=== PATIENT | male | born 2000 | race Caucasian/White ===

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

== ENCOUNTER → 2022-01-11 | Outpatient (REF) | payer MEDICAID ==
[2022-01-11 18:15] LABS: BASO % 0.2 % (0.0-1.0); EOS # 0.2 10^3/uL (0.0-0.5); EOS % 3.3 % (0.0-3.0); HEMOGLOBIN 13.6 g/dl (13.5-17.5); LYMPH # 2.3 10^3/uL (1.5-5.0); LYMPH % 39.4 % (24.0-44.0); MEAN CORPUSCULAR HEMOGLOBIN 29.5 pg (27.0-33.0); MEAN CORPUSCULAR HGB CONC 33.2 g/dl (32.0-36.5); MEAN CORPUSCULAR VOLUME 88.9 fl (80.0-96.0); MONO # 0.8 10^3/uL (0.0-0.8); MONO % 13.1 % (2.0-8.0); NEUTROPHILS # 2.5 10^3/uL (1.5-8.5); NEUTROPHILS % 43.7 % (36.0-66.0); PLATELET COUNT, AUTOMATED 270 10^3/uL (150-450); RED BLOOD COUNT 4.61 10^6/uL (4.30-6.10); WHITE BLOOD COUNT 5.8 10^3/uL (4.0-10.0)
== END ==
LOC: M LAB REF 17:59
PROVIDERS: ATTEND Pediatrics
DX: D72.819 Decreased white blood cell count, unspecified (principal)

== ENCOUNTER 2022-03-14 22:29 | Emergency (ER) | payer MEDICAID ==
[~2022-03-14] VITALS: Ht 204.5 cm; Wt 73.9 kg
[2022-03-14] MEDS ORDERED: COLC0.6T47 PO (22:43)
[2022-03-15 03:08] VITALS: BP 120/75
== END 2022-03-15 03:32 | disposition left against medical advice (07) ==
LOC: M ED 22:29
DX: Z53.21 Procedure and treatment not carried out due to patient leaving prior to being seen by health care provider (principal)

== ENCOUNTER 2022-03-15 20:29 | Emergency (ER) | payer MEDICAID ==
[~2022-03-15] VITALS: Ht 204.5 cm; Wt 73.5 kg
[~2022-03-15 20:29] MED LIST changes: +COLC0.6T47 PO
[2022-03-16 03:00] LABS: BASO % 0.1 % (0.0-1.0); EOS # 0.2 10^3/uL (0.0-0.5); EOS % 3.2 % (0.0-3.0); HEMATOCRIT 39.4 % (42.0-52.0); HEMOGLOBIN 13.2 g/dl (13.5-17.5); LYMPH # 3.1 10^3/uL (1.5-5.0); LYMPH % 46.1 % (24.0-44.0); MEAN CORPUSCULAR HEMOGLOBIN 29.5 pg (27.0-33.0); MEAN CORPUSCULAR HGB CONC 33.5 g/dl (32.0-36.5); MEAN CORPUSCULAR VOLUME 88.1 fl (80.0-96.0); MONO # 0.7 10^3/uL (0.0-0.8); MONO % 10.2 % (2.0-8.0); NEUTROPHILS # 2.7 10^3/uL (1.5-8.5); NEUTROPHILS % 40.3 % (36.0-66.0); PLATELET COUNT, AUTOMATED 235 10^3/uL (150-450); RED BLOOD COUNT 4.47 10^6/uL (4.30-6.10); WHITE BLOOD COUNT 6.8 10^3/uL (4.0-10.0)
[2022-03-16] MEDS ORDERED: NS 1,000 ML IV ONE (03:05)
[2022-03-16 03:34] LABS: BLOOD UREA NITROGEN 13 MG/DL (7-18); CARBON DIOXIDE LEVEL 28 MEQ/L (21-32); CHLORIDE LEVEL 107 MEQ/L (98-107); CREATININE FOR GFR 0.92 MG/DL (0.70-1.30); GLUCOSE, FASTING 106 MG/DL (70-100); POTASSIUM SERUM 4.1 MEQ/L (3.5-5.1); SODIUM LEVEL 140 MEQ/L (136-145)
[2022-03-16 05:55] VITALS: BP 126/82
== END 2022-03-16 06:00 | disposition home or self-care (01) ==
LOC: EDBD 20:29 → M ED 20:29
DX: I95.1 Orthostatic hypotension (principal); R51.9 Headache, unspecified; F84.0 Autistic disorder; M41.9 Scoliosis, unspecified; Z91.030 Bee allergy status; J30.2 Other seasonal allergic rhinitis

== ENCOUNTER → 2022-06-08 | Outpatient (REF) | payer MEDICAID ==
[2022-06-08 13:39] LABS: BASO % 0.2 % (0.0-1.0); EOS # 0.2 10^3/uL (0.0-0.5); EOS % 4.1 % (0.0-3.0); HEMATOCRIT 41.8 % (42.0-52.0); HEMOGLOBIN 13.7 g/dl (13.5-17.5); LYMPH # 1.8 10^3/uL (1.5-5.0); LYMPH % 41.3 % (24.0-44.0); MEAN CORPUSCULAR HEMOGLOBIN 29.1 pg (27.0-33.0); MEAN CORPUSCULAR HGB CONC 32.8 g/dl (32.0-36.5); MEAN CORPUSCULAR VOLUME 88.9 fl (80.0-96.0); MONO # 0.5 10^3/uL (0.0-0.8); MONO % 11.6 % (2.0-8.0); NEUTROPHILS # 1.9 10^3/uL (1.5-8.5); NEUTROPHILS % 42.8 % (36.0-66.0); PLATELET COUNT, AUTOMATED 260 10^3/uL (150-450); WHITE BLOOD COUNT 4.4 10^3/uL (4.0-10.0)
[2022-06-08 14:05] LABS: LIPASE 46 U/L (12-53)
[2022-06-08 14:07] LABS: ALBUMIN 4.5 G/DL (3.2-5.2); ALKALINE PHOSPHATASE 107 U/L (46-116); ALT/SGPT 10 U/L (7.0-40); AMYLASE 157 U/L (30-118); AST/SGOT 18 U/L (<34); BILIRUBIN,TOTAL 1.2 MG/DL (0.3-1.2); BLOOD UREA NITROGEN 16 MG/DL (9-23); CALCIUM LEVEL 9.4 MG/DL (8.5-10.1); CARBON DIOXIDE LEVEL 28 MMOL/L (20-31); CHLORIDE LEVEL 105 MMOL/L (98-107); GLUCOSE, FASTING 90 MG/DL (60-100); POTASSIUM SERUM 4.7 MMOL/L (3.5-5.1); SODIUM LEVEL 142 MMOL/L (136-145); TOTAL PROTEIN 7.7 G/DL (5.7-8.2)
== END ==
LOC: M LAB REF 12:30
PROVIDERS: ATTEND Nurse Practitioner Family
DX: R10.9 Unspecified abdominal pain (principal)

== ENCOUNTER → 2022-06-27 | Outpatient (CLI) | payer MEDICAID | LOC: M RAD 07:21 | PROVIDERS: ATTEND Nurse Practitioner Family | DX: R10.9 Unspecified abdominal pain (principal) ==

== ENCOUNTER 2022-11-05 19:14 | Observation (INO) | payer MEDICAID ==
[~2022-11-05] VITALS: Ht 204.5 cm; Wt 71.5 kg
[2022-11-05] MEDS ORDERED: NS 1,000 ML IV ONE (19:35)
[2022-11-05] MEDS ORDERED: CHARCOAL ACTIVATED LIQUID 25GM/120ML BTL PO ONE (19:50)
[2022-11-05 19:55] LABS: HEMATOCRIT 39.1 % (42.0-52.0); HEMOGLOBIN 13.2 g/dl (13.5-17.5); MEAN CORPUSCULAR HEMOGLOBIN 29.2 pg (27.0-33.0); MEAN CORPUSCULAR HGB CONC 33.8 g/dl (32.0-36.5); MEAN CORPUSCULAR VOLUME 86.5 fl (80.0-96.0); PLATELET COUNT, AUTOMATED 235 10^3/uL (150-450); RED BLOOD COUNT 4.52 10^6/uL (4.30-6.10); WHITE BLOOD COUNT 7.5 10^3/uL (4.0-10.0)
[2022-11-05 20:21] LABS: ETHYL ALCOHOL (ETHANOL) < 0.003 % (0.000-0.010)
[2022-11-05 20:23] LABS: ACETAMINOPHEN LEVEL < 2.0 UG/ML (10.0-20.0); ALBUMIN 4.6 G/DL (3.2-5.2); ALKALINE PHOSPHATASE 101 U/L (46-116); ALT/SGPT < 9 U/L (7.0-40); AST/SGOT 11 U/L (<34); BILIRUBIN,DIRECT 0.6 MG/DL (<0.4); BILIRUBIN,TOTAL 1.7 MG/DL (0.3-1.2); BLOOD UREA NITROGEN 14 MG/DL (9-23); CALCIUM LEVEL 9.3 MG/DL (8.5-10.1); CARBON DIOXIDE LEVEL 24 MMOL/L (20-31); CHLORIDE LEVEL 107 MMOL/L (98-107); GLUCOSE, FASTING 105 MG/DL (60-100); POTASSIUM SERUM 3.6 MMOL/L (3.5-5.1); SALICYLATE LEVEL < 3.0 MG/DL (<30); SODIUM LEVEL 138 MMOL/L (136-145); TOTAL PROTEIN 7.5 G/DL (5.7-8.2)
[2022-11-05 20:25] LABS: THYROID STIMULATING HORMONE 0.616 uIU/ML (0.48-4.17)
[2022-11-05] MEDS ORDERED: ACETAMINOPHEN TAB 650MG DOSE (2X325MG) PO PRN (22:30)
[2022-11-05] MEDS ORDERED: CITA10TA6 PO (22:56)
[2022-11-05] MEDS ORDERED: HOME MED LIST COMPLETE! XX SCH (23:00)
[2022-11-06 00:04] VITALS: BP 143/76; TEMP 98.1; O2SAT 97
[2022-11-06 00:57] LABS: AMPHETAMINES LEVEL URINE NEGATIVE (NEGATIVE); BARBITURATES URINE NEGATIVE (NEGATIVE); BENZODIAZEPINES URINE NEGATIVE (NEGATIVE); CANNABINOIDS URINE NEGATIVE (NEGATIVE); COCAINE METABOLITE URINE NEGATIVE (NEGATIVE); METHADONE URINE NEGATIVE (NEGATIVE); OPIATES URINE NEGATIVE (NEGATIVE); PHENCYCLIDINE URINE NEGATIVE (NEGATIVE)
[2022-11-06 05:03] VITALS: BP 110/59; TEMP 98.8; O2SAT 98
[2022-11-06 06:04] LABS: HEMATOCRIT 37.1 % (42.0-52.0); HEMOGLOBIN 12.4 g/dl (13.5-17.5); MEAN CORPUSCULAR HEMOGLOBIN 29.5 pg (27.0-33.0); MEAN CORPUSCULAR HGB CONC 33.4 g/dl (32.0-36.5); MEAN CORPUSCULAR VOLUME 88.3 fl (80.0-96.0); PLATELET COUNT, AUTOMATED 221 10^3/uL (150-450); WHITE BLOOD COUNT 5.3 10^3/uL (4.0-10.0)
[2022-11-06 06:24] LABS: BLOOD UREA NITROGEN 12 MG/DL (9-23); CALCIUM LEVEL 8.8 MG/DL (8.5-10.1); CARBON DIOXIDE LEVEL 26 MMOL/L (20-31); CHLORIDE LEVEL 106 MMOL/L (98-107); CREATININE FOR GFR 0.78 MG/DL (0.70-1.30); GLUCOSE, FASTING 126 MG/DL (60-100); POTASSIUM SERUM 4.3 MMOL/L (3.5-5.1); SODIUM LEVEL 139 MMOL/L (136-145)
[2022-11-06 07:00] VITALS: BP 118/65
[2022-11-06 08:40] LABS: CK-MB VALUE MASS < 1.0 NG/ML (<3.6)
[2022-11-06 08:41] LABS: CPK CREATINE PHOSPHOKINASE 116 U/L (46-171); MB/CK RELATIVE INDEX 0.86 (< OR =4)
[2022-11-06 09:31] LABS: CK-MB VALUE MASS < 1.0 NG/ML (<3.6)
[2022-11-06 09:33] LABS: CPK CREATINE PHOSPHOKINASE 119 U/L (46-171); MB/CK RELATIVE INDEX 0.84 (< OR =4)
[2022-11-06 14:00] VITALS: BP 108/70; TEMP 99.7; O2SAT 98
[2022-11-06 20:33] VITALS: BP 107/59; TEMP 98.8; O2SAT 99
== END 2022-11-06 22:21 ==
LOC: M ED 19:14 → M ED INP 19:15 → M MSPAV 11-06 00:11
PROVIDERS: ADMIT Internal Medicine; ATTEND Internal Medicine
DX: T43.222A Poisoning by selective serotonin reuptake inhibitors, intentional self-harm, initial encounter (principal); T38.0X2A Poisoning by glucocorticoids and synthetic analogues, intentional self-harm, initial encounter; F32.89 Other specified depressive episodes; R07.9 Chest pain, unspecified; F84.0 Autistic disorder; Q87.3 Congenital malformation syndromes involving early overgrowth; J30.2 Other seasonal allergic rhinitis; Z79.899 Other long term (current) drug therapy; Z91.030 Bee allergy status

== ENCOUNTER 2022-11-06 20:41 | Inpatient (IN) | payer MEDICAID ==
[~2022-11-06] VITALS: Ht 203.2 cm; Wt 69.0 kg
[~2022-11-06 20:41] MED LIST changes: +CITA10TA6 PO
[2022-11-06] MEDS ORDERED: ACETAMINOPHEN TAB 650MG DOSE (2X325MG) PO PRN (21:00)
[2022-11-06] MEDS ORDERED: MOM 30ML SUSPENSION UDC PO PRN (21:00)
[2022-11-06] MEDS ORDERED: traZODone 50 MG TAB PO PRN (21:00)
[2022-11-06] MEDS ORDERED: MAALOX 30 ML SUSP *UDC PO PRN (21:00)
[2022-11-06 22:25] VITALS: BP 105/60; TEMP 97.7; O2SAT 16
[2022-11-07 06:06] VITALS: BP 107/59; TEMP 97.9; O2SAT 98
[2022-11-07] MEDS: ARIPiprazole 2 MG TAB PO SCH (11:55)
[2022-11-07 18:27] VITALS: BP 119/60; TEMP 96.9
[2022-11-08 06:40] LABS: CHOLESTEROL RISK RATIO 2.96 (<5); HDL CHOLESTEROL 49.9 MG/DL (>40); LDL CHOLESTEROL 82.9 MG/DL (<100); NON-HDL-C 98.1 MG/DL
[2022-11-08 06:45] VITALS: BP 119/58; TEMP 96.8; O2SAT 96
[2022-11-08] MEDS: CitaloPRAM (CeleXA) 10 MG TABLET PO SCH (09:23)
[2022-11-08] MEDS: ARIPiprazole 2 MG TAB PO SCH (09:23)
[2022-11-08] MEDS ORDERED: BENZTROPINE 0.5 MG TAB PO PRN (11:10)
[2022-11-08] MEDS ORDERED: PILL CUTTER 1 EACH XX PRN (11:20)
[2022-11-08 18:55] VITALS: BP 117/71; TEMP 97.2
[2022-11-09 06:28] VITALS: BP 108/55; TEMP 97.8; O2SAT 99
[2022-11-09] MEDS ORDERED: LIDOCAINE 5% (LIDODERM) PATCH TD SCH (09:00)
[2022-11-09] MEDS: CitaloPRAM (CeleXA) 10 MG TABLET PO SCH (09:26)
[2022-11-09] MEDS: ARIPiprazole 2 MG TAB PO SCH (09:26)
[2022-11-09] MEDS ORDERED: CELE10TA PO (11:35)
[2022-11-09] MEDS ORDERED: ABIL1TAB13 PO (11:35)
[2022-11-09] MEDS ORDERED: LIDO5DIS41 TOP (13:10)
== END 2022-11-09 12:48 | disposition home or self-care (01) | DRG 758 ==
LOC: M ED INP 20:58 → M PSY 22:25
PROVIDERS: ADMIT Student in an Organized Health Care Education/Training Program; ATTEND Student in an Organized Health Care Education/Training Program
DX: F63.9 Impulse disorder, unspecified (principal); F43.20 Adjustment disorder, unspecified; M41.9 Scoliosis, unspecified; Q87.3 Congenital malformation syndromes involving early overgrowth; F84.0 Autistic disorder; Z91.51 Personal history of suicidal behavior; F41.9 Anxiety disorder, unspecified; F32.A Depression, unspecified; Z91.030 Bee allergy status

== ENCOUNTER → 2022-12-14 | Outpatient (REF) | payer MEDICAID ==
[~2022-12-14] MED LIST changes: +ABIL1TAB13 PO; +CELE10TA PO; +LIDO5DIS41 TOP
== END ==
LOC: M LAB REF 16:49
PROVIDERS: ATTEND Nurse Practitioner Family
DX: R19.5 Other fecal abnormalities (principal)

== ENCOUNTER → 2022-12-18 | Outpatient (REF) | payer MEDICAID | LOC: M LAB REF 11:24 | PROVIDERS: ATTEND Nurse Practitioner Family | DX: Z11.9 Encounter for screening for infectious and parasitic diseases, unspecified (principal) ==

== ENCOUNTER 2022-12-24 12:33 | Inpatient (IN) | payer MEDICAID ==
[~2022-12-24] VITALS: Ht 203.2 cm; Wt 73.2 kg
[2022-12-24] MEDS ORDERED: HYDR-643 PO ×3 (13:01→21:55)
[2022-12-24 13:48] LABS: HEMATOCRIT 41.1 % (42.0-52.0); HEMOGLOBIN 13.7 g/dl (13.5-17.5); MEAN CORPUSCULAR HEMOGLOBIN 29.3 pg (27.0-33.0); MEAN CORPUSCULAR HGB CONC 33.3 g/dl (32.0-36.5); PLATELET COUNT, AUTOMATED 246 10^3/uL (150-450); RED BLOOD COUNT 4.67 10^6/uL (4.30-6.10); WHITE BLOOD COUNT 7.1 10^3/uL (4.0-10.0)
[2022-12-24 14:06] LABS: ETHYL ALCOHOL (ETHANOL) < 0.003 % (0.000-0.010)
[2022-12-24 14:07] LABS: ACETAMINOPHEN LEVEL < 2.0 UG/ML (10.0-20.0); ALBUMIN 4.3 G/DL (3.2-5.2); ALKALINE PHOSPHATASE 98 U/L (46-116); ALT/SGPT < 9 U/L (7.0-40); AST/SGOT < 8 U/L (<34); BILIRUBIN,DIRECT 0.4 MG/DL (<0.4); BILIRUBIN,TOTAL 1.1 MG/DL (0.3-1.2); BLOOD UREA NITROGEN 13 MG/DL (9-23); CALCIUM LEVEL 9.6 MG/DL (8.5-10.1); CARBON DIOXIDE LEVEL 26 MMOL/L (20-31); CHLORIDE LEVEL 105 MMOL/L (98-107); CREATININE FOR GFR 0.82 MG/DL (0.70-1.30); GLUCOSE, FASTING 95 MG/DL (60-100); POTASSIUM SERUM 3.8 MMOL/L (3.5-5.1); SODIUM LEVEL 140 MMOL/L (136-145); TOTAL PROTEIN 7.7 G/DL (5.7-8.2)
[2022-12-24 14:08] LABS: SALICYLATE LEVEL < 3.0 MG/DL (<30)
[2022-12-24 14:10] LABS: THYROID STIMULATING HORMONE 0.769 uIU/ML (0.48-4.17)
[2022-12-24 18:10] LABS: AMPHETAMINES LEVEL URINE NEGATIVE (NEGATIVE); BARBITURATES URINE NEGATIVE (NEGATIVE); PHENCYCLIDINE URINE NEGATIVE (NEGATIVE)
[2022-12-24 18:11] LABS: BENZODIAZEPINES URINE NEGATIVE (NEGATIVE); CANNABINOIDS URINE NEGATIVE (NEGATIVE); COCAINE METABOLITE URINE NEGATIVE (NEGATIVE); METHADONE URINE NEGATIVE (NEGATIVE); OPIATES URINE NEGATIVE (NEGATIVE)
[2022-12-24] MEDS ORDERED: diphenhydrAMINE 25MG CAP PO PRN (20:40)
[2022-12-24] MEDS ORDERED: MAALOX 30 ML SUSP *UDC PO PRN (20:40)
[2022-12-24] MEDS ORDERED: MOM 30ML SUSPENSION UDC PO PRN (20:40)
[2022-12-24] MEDS ORDERED: ACETAMINOPHEN TAB 650MG DOSE (2X325MG) PO PRN (20:40)
[2022-12-24] MEDS ORDERED: IBUPROFEN 400MG TAB PO PRN (20:40)
[2022-12-24] MEDS ORDERED: traZODone 50 MG TAB PO PRN (20:40)
[2022-12-24] MEDS ORDERED: ARIP1TAB4 PO (21:55)
[2022-12-24] MEDS ORDERED: CITA10TA7 PO (21:55)
[2022-12-24] MEDS ORDERED: HOME MED LIST COMPLETE! XX SCH (22:00)
[2022-12-24 22:14] VITALS: BP 122/74; TEMP 97.3; O2SAT 100
[2022-12-25 06:25] VITALS: BP 115/63; TEMP 98.1; O2SAT 100
[2022-12-25 18:59] VITALS: BP 117/71; TEMP 97.2
[2022-12-25] MEDS: ARIPiprazole 2 MG TAB PO SCH (21:52)
[2022-12-25] MEDS: CitaloPRAM (CeleXA) 10 MG TABLET PO SCH (21:53)
[2022-12-26 06:28] VITALS: BP 112/64; TEMP 98; O2SAT 98
[2022-12-26 18:27] VITALS: BP 119/65; TEMP 97
[2022-12-26] MEDS: CitaloPRAM (CeleXA) 10 MG TABLET PO SCH (21:22)
[2022-12-26] MEDS: ARIPiprazole 2 MG TAB PO SCH (21:22)
[2022-12-27 06:19] VITALS: BP 103/56; TEMP 98; O2SAT 98
[2022-12-27 18:00] VITALS: BP 127/77; TEMP 97.6
[2022-12-27] MEDS: ARIPiprazole 2 MG TAB PO SCH (21:18)
[2022-12-27] MEDS: CitaloPRAM (CeleXA) 10 MG TABLET PO SCH (21:18)
[2022-12-28 06:05] VITALS: BP 104/54; TEMP 98.1; O2SAT 97
== END 2022-12-28 12:06 | disposition home or self-care (01) | DRG 754 ==
LOC: M ED 12:33 → M ED INP 20:40 → M PSY 21:57
PROVIDERS: ADMIT Psychiatry & Neurology Psychiatry; ATTEND Psychiatry & Neurology Psychiatry
DX: F32.A Depression, unspecified (principal); M41.9 Scoliosis, unspecified; Q87.3 Congenital malformation syndromes involving early overgrowth; M54.50 Low back pain, unspecified; F63.9 Impulse disorder, unspecified; F84.0 Autistic disorder; F41.9 Anxiety disorder, unspecified; Z91.51 Personal history of suicidal behavior; Z81.1 Family history of alcohol abuse and dependence; Z62.811 Personal history of psychological abuse in childhood; Z79.899 Other long term (current) drug therapy; Z91.030 Bee allergy status; Z20.822 Contact with and (suspected) exposure to COVID-19; Z63.0 Problems in relationship with spouse or partner

== ENCOUNTER 2023-04-01 11:01 | Observation (INO) | payer MEDICAID ==
[~2023-04-01] VITALS: Ht 203.2 cm; Wt 80.2 kg
[~2023-04-01 11:01] MED LIST changes: +ARIP1TAB4 PO; +CITA10TA7 PO; +HYDR-643 PO; +RA M1.74 PO
[2023-04-01 14:58] LABS: BASO % 0.1 % (0.0-1.0); EOS # 0.2 10^3/uL (0.0-0.5); EOS % 2.2 % (0.0-3.0); HEMATOCRIT 43.6 % (42.0-52.0); HEMOGLOBIN 14.3 g/dl (13.5-17.5); LYMPH # 2.1 10^3/uL (1.5-5.0); LYMPH % 31.7 % (24.0-44.0); MEAN CORPUSCULAR HEMOGLOBIN 29.1 pg (27.0-33.0); MEAN CORPUSCULAR HGB CONC 32.8 g/dl (32.0-36.5); MEAN CORPUSCULAR VOLUME 88.6 fl (80.0-96.0); MONO # 0.6 10^3/uL (0.0-0.8); MONO % 8.8 % (2.0-8.0); NEUTROPHILS # 3.8 10^3/uL (1.5-8.5); NEUTROPHILS % 57.1 % (36.0-66.0); PLATELET COUNT, AUTOMATED 262 10^3/uL (150-450); RED BLOOD COUNT 4.92 10^6/uL (4.30-6.10); WHITE BLOOD COUNT 6.7 10^3/uL (4.0-10.0)
[2023-04-01] MEDS ORDERED: ISOVUE-370 76% 100ML VIAL As Ordered ONE (15:03)
[2023-04-01 15:25] LABS: LIPASE 39 U/L (12-53)
[2023-04-01 15:27] LABS: ALBUMIN 4.5 G/DL (3.2-5.2); ALKALINE PHOSPHATASE 106 U/L (46-116); ALT/SGPT < 9 U/L (7.0-40); AST/SGOT 17 U/L (<34); BILIRUBIN,DIRECT 0.2 MG/DL (<0.4); BILIRUBIN,TOTAL 0.8 MG/DL (0.3-1.2); TOTAL PROTEIN 8.1 G/DL (5.7-8.2)
[2023-04-01] MEDS ORDERED: FLEET ENEMA PR STA (16:20)
[2023-04-01] MEDS ORDERED: LACTULOSE 20GM/30ML SYRUP UDC PO ONE (16:20)
[2023-04-01] MEDS ORDERED: BISACODYL 10MG SUPP PR ONE (16:40)
[2023-04-01] MEDS ORDERED: MED REC IN PROGRESS XX SCH (17:40)
[2023-04-01 18:17] LABS: RSV AMPLIFICATION NEGATIVE (NEGATIVE)
[2023-04-01] MEDS ORDERED: ARIP1TAB6 PO (18:27)
[2023-04-01] MEDS ORDERED: EPIP0.3I2 INJ (18:29)
[2023-04-01] MEDS ORDERED: COLA100C5 PO (18:30)
[2023-04-01] MEDS ORDERED: RA M1SOL2 PO (18:32)
[2023-04-01] MEDS ORDERED: MIRA3350 PO (18:33)
[2023-04-01] MEDS ORDERED: HOME MED LIST COMPLETE! XX SCH (18:35)
[2023-04-01 19:46] VITALS: BP 120/68; TEMP 97.6; O2SAT 97
[2023-04-01] MEDS: LACTULOSE 20GM/30ML SYRUP UDC PO SCH (20:45)
[2023-04-01] MEDS: CitaloPRAM (CeleXA) 10 MG TABLET PO SCH (20:45)
[2023-04-01] MEDS: SENNA 8.6 MG TAB (SENOKOT) PO SCH (20:45)
[2023-04-01] MEDS: DOCUSATE SODIUM 100MG CAPSULE PO SCH (20:45)
[2023-04-02] MEDS: LACTULOSE 20GM/30ML SYRUP UDC PO SCH ×3 (00:25→09:34)
[2023-04-02 01:31] VITALS: BP 113/70; TEMP 97.3; O2SAT 97
[2023-04-02 05:59] VITALS: TEMP 98.4
[2023-04-02] MEDS: DOCUSATE SODIUM 100MG CAPSULE PO SCH (09:34)
[2023-04-02] MEDS: SENNA 8.6 MG TAB (SENOKOT) PO SCH (09:34)
[2023-04-02 14:00] VITALS: BP 125/80; TEMP 97.7; O2SAT 100
[2023-04-02] MEDS ORDERED: BISACODYL 10MG SUPP PR SCH (18:00)
[2023-04-02 20:56] VITALS: BP 127/85; TEMP 97.9; O2SAT 100
[2023-04-02] MEDS ORDERED: MOM 30ML SUSPENSION UDC PO SCH (21:00)
[2023-04-02] MEDS ORDERED: BISACODYL 5MG TAB PO SCH (21:00)
[2023-04-02] MEDS: BISACODYL 10MG SUPP PR SCH (21:52)
[2023-04-03] MEDS: MIRALAX *UNIT DOSE* 17GM PACKET NG SCH ×2 (00:25→09:07)
[2023-04-03] MEDS: CitaloPRAM (CeleXA) 10 MG TABLET PO SCH (00:26)
[2023-04-03] MEDS: DOCUSATE SODIUM 100MG CAPSULE PO SCH ×3 (00:26→09:08)
[2023-04-03] MEDS: SENNA 8.6 MG TAB (SENOKOT) PO SCH ×2 (00:26→09:08)
[2023-04-03] MEDS: BISACODYL 10MG SUPP PR SCH ×5 (01:36→17:42)
[2023-04-03 06:08] LABS: EOS # 0.2 10^3/uL (0.0-0.5); EOS % 2.3 % (0.0-3.0); HEMATOCRIT 40.3 % (42.0-52.0); HEMOGLOBIN 13.5 g/dl (13.5-17.5); LYMPH # 1.7 10^3/uL (1.5-5.0); LYMPH % 26.1 % (24.0-44.0); MEAN CORPUSCULAR HEMOGLOBIN 29.2 pg (27.0-33.0); MEAN CORPUSCULAR HGB CONC 33.5 g/dl (32.0-36.5); MONO # 0.7 10^3/uL (0.0-0.8); MONO % 11.5 % (2.0-8.0); NEUTROPHILS # 3.9 10^3/uL (1.5-8.5); NEUTROPHILS % 59.9 % (36.0-66.0); PLATELET COUNT, AUTOMATED 239 10^3/uL (150-450); RED BLOOD COUNT 4.63 10^6/uL (4.30-6.10); WHITE BLOOD COUNT 6.4 10^3/uL (4.0-10.0)
[2023-04-03 06:41] VITALS: BP 125/79; TEMP 97; O2SAT 97
[2023-04-03 06:54] LABS: BLOOD UREA NITROGEN 14 MG/DL (9-23); CALCIUM LEVEL 9.2 MG/DL (8.5-10.1); CARBON DIOXIDE LEVEL 27 MMOL/L (20-31); CHLORIDE LEVEL 101 MMOL/L (98-107); CREATININE FOR GFR 0.88 MG/DL (0.70-1.30); GLUCOSE, FASTING 91 MG/DL (60-100); POTASSIUM SERUM 4.5 MMOL/L (3.5-5.1); SODIUM LEVEL 136 MMOL/L (136-145)
[2023-04-03] MEDS ORDERED: DOCUSATE SOD LIQ 100MG/10ML UDC PO SCH (09:00)
[2023-04-03 14:00] VITALS: BP 119/75; TEMP 98.1; O2SAT 97
[2023-04-03] MEDS ORDERED: SENN-122 PO (17:34)
[2023-04-03] MEDS ORDERED: MIRA3350 PO (17:34)
[2023-04-03] MEDS ORDERED: DULC10SU2 PR (17:34)
== END 2023-04-03 18:40 | disposition home or self-care (01) ==
LOC: M ED 11:01 → M ED INP 17:53 → M MS4PR 19:43 → M MS5PR 04-02 01:38
PROVIDERS: ADMIT Internal Medicine Nephrology; ATTEND Internal Medicine Nephrology
DX: K56.41 Fecal impaction (principal); K59.39 Other megacolon; M54.50 Low back pain, unspecified; F84.0 Autistic disorder; F63.9 Impulse disorder, unspecified; F32.A Depression, unspecified; Z91.51 Personal history of suicidal behavior; F41.9 Anxiety disorder, unspecified; Q87.3 Congenital malformation syndromes involving early overgrowth; M41.9 Scoliosis, unspecified; N62 Hypertrophy of breast; R91.1 Solitary pulmonary nodule; J30.2 Other seasonal allergic rhinitis; Z91.030 Bee allergy status; Z79.899 Other long term (current) drug therapy
CPT/HCPCS: 36415; 72131; 74018; 74177; 80047; 80048; 80076; 83690; 85025; 87631; 99284; Q9967

== ENCOUNTER 2023-05-30 12:39 | Inpatient (IN) | payer MEDICAID ==
[~2023-05-30] VITALS: Ht 204.5 cm; Wt 81.3 kg
[~2023-05-30 12:39] MED LIST changes: +ARIP1TAB6 PO; +DULC10SU2 PR; +EPIP0.3I2 INJ; +RA M1SOL2 PO; +SENN-122 PO
[2023-05-30 13:26] LABS: HEMATOCRIT 41.8 % (42.0-52.0); HEMOGLOBIN 13.7 g/dl (13.5-17.5); MEAN CORPUSCULAR HEMOGLOBIN 28.8 pg (27.0-33.0); MEAN CORPUSCULAR HGB CONC 32.8 g/dl (32.0-36.5); PLATELET COUNT, AUTOMATED 254 10^3/uL (150-450); RED BLOOD COUNT 4.75 10^6/uL (4.30-6.10); WHITE BLOOD COUNT 8.4 10^3/uL (4.0-10.0)
[2023-05-30 13:47] LABS: ETHYL ALCOHOL (ETHANOL) 0.004 % (0.000-0.010)
[2023-05-30 13:49] LABS: ALBUMIN 4.2 G/DL (3.2-5.2); ALKALINE PHOSPHATASE 98 U/L (46-116); ALT/SGPT 20 U/L (7.0-40); AST/SGOT 14 U/L (<34); BILIRUBIN,DIRECT 0.5 MG/DL (<0.4); BILIRUBIN,TOTAL 1.8 MG/DL (0.3-1.2); BLOOD UREA NITROGEN 16 MG/DL (9-23); CALCIUM LEVEL 9.1 MG/DL (8.5-10.1); CARBON DIOXIDE LEVEL 29 MMOL/L (20-31); CHLORIDE LEVEL 105 MMOL/L (98-107); CREATININE FOR GFR 0.92 MG/DL (0.70-1.30); GLUCOSE, FASTING 82 MG/DL (60-100); POTASSIUM SERUM 4.2 MMOL/L (3.5-5.1); SALICYLATE LEVEL < 3.0 MG/DL (<30); SODIUM LEVEL 139 MMOL/L (136-145); TOTAL PROTEIN 7.7 G/DL (5.7-8.2)
[2023-05-30 14:54] LABS: AMPHETAMINES LEVEL URINE NEGATIVE (NEGATIVE); BARBITURATES URINE NEGATIVE (NEGATIVE); BENZODIAZEPINES URINE NEGATIVE (NEGATIVE); COCAINE METABOLITE URINE NEGATIVE (NEGATIVE); METHADONE URINE NEGATIVE (NEGATIVE); OPIATES URINE NEGATIVE (NEGATIVE)
[2023-05-30 14:55] LABS: CANNABINOIDS URINE NEGATIVE (NEGATIVE); PHENCYCLIDINE URINE NEGATIVE (NEGATIVE)
[2023-05-30] MEDS ORDERED: MOM 30ML SUSPENSION UDC PO PRN (15:50)
[2023-05-30] MEDS ORDERED: OLANZapine ORAL DISINTEGRATING TAB 5MG PO PRN (15:50)
[2023-05-30] MEDS ORDERED: ACETAMINOPHEN TAB 650MG DOSE (2X325MG) PO PRN (15:50)
[2023-05-30] MEDS ORDERED: MAALOX 30 ML SUSP *UDC PO PRN (15:50)
[2023-05-30] MEDS ORDERED: traZODone 50 MG TAB PO PRN (15:50)
[2023-05-30] MEDS ORDERED: diphenhydrAMINE 25MG CAP PO PRN (15:50)
[2023-05-30] MEDS ORDERED: IBUPROFEN 400MG TAB PO PRN (15:50)
[2023-05-30] MEDS ORDERED: HOME MED LIST COMPLETE! XX SCH (20:40)
[2023-05-30] MEDS: CitaloPRAM (CeleXA) 10 MG TABLET PO SCH (21:39)
[2023-05-31 11:52] VITALS: BP 127/73; TEMP 99; O2SAT 98
[2023-05-31 16:15] VITALS: BP 120/73; TEMP 98.6; O2SAT 98
[2023-05-31] MEDS: CitaloPRAM (CeleXA) 10 MG TABLET PO SCH (21:25)
[2023-06-01 06:49] VITALS: BP 105/54; TEMP 98.7; O2SAT 100
[2023-06-01 08:40] VITALS: BP 105/54; TEMP 98.7; O2SAT 100
[2023-06-01 16:05] VITALS: BP 116/68; TEMP 98.3; O2SAT 100
[2023-06-01] MEDS: CitaloPRAM (CeleXA) 10 MG TABLET PO SCH (20:46)
[2023-06-01] MEDS: ARIPiprazole 10 MG TAB PO SCH (20:47)
[2023-06-02 06:57] VITALS: BP 110/58; TEMP 98.5; O2SAT 99
[2023-06-02 07:39] LABS: CHOLESTEROL RISK RATIO 2.98 (<5); HDL CHOLESTEROL 57.3 MG/DL (>40); LDL CHOLESTEROL 103.1 MG/DL (<100); NON-HDL-C 113.7 MG/DL
[2023-06-02 11:48] VITALS: BP 128/80
[2023-06-02 16:29] VITALS: BP 122/77; TEMP 98.2; O2SAT 100
[2023-06-02] MEDS: CitaloPRAM (CeleXA) 10 MG TABLET PO SCH (20:31)
[2023-06-02] MEDS: ARIPiprazole 10 MG TAB PO SCH (20:31)
[2023-06-03 06:50] VITALS: BP 118/54; TEMP 98.3; O2SAT 98
[2023-06-03] MEDS ORDERED: HYDR-643 PO (08:29)
[2023-06-03] MEDS ORDERED: ARIP1TAB PO (08:29)
[2023-06-03] MEDS ORDERED: CITA10TA7 PO (08:29)
== END 2023-06-03 10:45 | disposition home or self-care (01) | DRG 751 ==
LOC: M ED 12:39 → M ED INP 15:48 → M PSY 05-31 11:59
PROVIDERS: ADMIT Student in an Organized Health Care Education/Training Program; ATTEND Student in an Organized Health Care Education/Training Program
DX: F29 Unspecified psychosis not due to a substance or known physiological condition (principal); F63.9 Impulse disorder, unspecified; R45.851 Suicidal ideations; F84.0 Autistic disorder; M41.9 Scoliosis, unspecified; K58.9 Irritable bowel syndrome, unspecified; Q87.3 Congenital malformation syndromes involving early overgrowth; Z81.8 Family history of other mental and behavioral disorders; Z81.1 Family history of alcohol abuse and dependence; Z79.899 Other long term (current) drug therapy; Z91.030 Bee allergy status; Z20.822 Contact with and (suspected) exposure to COVID-19; Z56.0 Unemployment, unspecified; Z91.51 Personal history of suicidal behavior

== ENCOUNTER 2023-07-26 09:29 | Day surgery (SDC) | payer SELFPAY ==
[~2023-07-26] VITALS: Ht 204.5 cm; Wt 81.0 kg
[~2023-07-26 09:29] MED LIST changes: +ARIP1TAB PO
[2023-07-26] MEDS: NS 1,000 ML IV ONE (10:54)
[2023-07-26] MEDS ORDERED: propofoL 500 MG/50 ML VIAL As Ordered ONE (11:59)
[2023-07-26 12:16] VITALS: TEMP 97.3
[2023-07-26 12:34] VITALS: BP 111/65; O2SAT 99
== END 2023-07-26 13:28 | disposition home or self-care (01) ==
LOC: M OPP 09:29
PROVIDERS: ATTEND Internal Medicine Gastroenterology
DX: K59.00 Constipation, unspecified (principal); R93.3 Abnormal findings on diagnostic imaging of other parts of digestive tract; Z53.8 Procedure and treatment not carried out for other reasons; Z79.899 Other long term (current) drug therapy; Z91.030 Bee allergy status

== ENCOUNTER → 2023-08-27 | Outpatient (CLI) | payer MEDICAID | LOC: M RAD 08:07 | PROVIDERS: ATTEND Nurse Practitioner Family | DX: R91.1 Solitary pulmonary nodule (principal) ==

== ENCOUNTER → 2023-10-22 | Outpatient (CLI) | payer MEDICAID ==
[2023-10-22 12:05] LABS: BASO % 0.2 % (0.0-1.0); EOS # 0.2 10^3/uL (0.0-0.5); EOS % 4.3 % (0.0-3.0); HEMATOCRIT 41.3 % (42.0-52.0); HEMOGLOBIN 13.8 g/dl (13.5-17.5); LYMPH # 2.1 10^3/uL (1.5-5.0); LYMPH % 40.8 % (24.0-44.0); MEAN CORPUSCULAR HEMOGLOBIN 29.3 pg (27.0-33.0); MEAN CORPUSCULAR HGB CONC 33.4 g/dl (32.0-36.5); MEAN CORPUSCULAR VOLUME 87.7 fl (80.0-96.0); MONO # 0.5 10^3/uL (0.0-0.8); MONO % 9.2 % (2.0-8.0); NEUTROPHILS # 2.3 10^3/uL (1.5-8.5); NEUTROPHILS % 45.3 % (36.0-66.0); PLATELET COUNT, AUTOMATED 235 10^3/uL (150-450); RED BLOOD COUNT 4.71 10^6/uL (4.30-6.10); WHITE BLOOD COUNT 5.1 10^3/uL (4.0-10.0)
[2023-10-22 12:29] LABS: PERCENT SATURATION 47.7 % (19.7-50.0)
== END ==
LOC: M LAB 11:13
PROVIDERS: ATTEND Nurse Practitioner Family
DX: R58 Hemorrhage, not elsewhere classified (principal)

== ENCOUNTER 2024-01-24 21:13 | Emergency (ER) | payer MEDICAID ==
[~2024-01-24] VITALS: Ht 205.7 cm; Wt 75.4 kg
[2024-01-24 22:21] LABS: BASO % 0.2 % (0.0-1.0); EOS # 0.2 10^3/uL (0.0-0.5); EOS % 2.2 % (0.0-3.0); HEMATOCRIT 40.9 % (42.0-52.0); HEMOGLOBIN 13.7 g/dl (13.5-17.5); LYMPH % 22.9 % (24.0-44.0); MEAN CORPUSCULAR HEMOGLOBIN 29.1 pg (27.0-33.0); MEAN CORPUSCULAR HGB CONC 33.5 g/dl (32.0-36.5); MEAN CORPUSCULAR VOLUME 86.8 fl (80.0-96.0); NEUTROPHILS # 5.5 10^3/uL (1.5-8.5); NEUTROPHILS % 63.5 % (36.0-66.0); PLATELET COUNT, AUTOMATED 242 10^3/uL (150-450); RED BLOOD COUNT 4.71 10^6/uL (4.30-6.10); WHITE BLOOD COUNT 8.6 10^3/uL (4.0-10.0)
[2024-01-24 22:29] LABS: LIPASE 35 U/L (12-53)
[2024-01-24 22:32] LABS: ALBUMIN 4.8 G/DL (3.2-5.2); ALKALINE PHOSPHATASE 109 U/L (46-116); ALT/SGPT < 9 U/L (7.0-40); AST/SGOT 11 U/L (<34); BILIRUBIN,DIRECT 0.9 MG/DL (<0.4); BILIRUBIN,TOTAL 2.8 MG/DL (0.3-1.2); BLOOD UREA NITROGEN 17 MG/DL (9-23); CALCIUM LEVEL 9.5 MG/DL (8.5-10.1); CARBON DIOXIDE LEVEL 24 MMOL/L (20-31); CHLORIDE LEVEL 104 MMOL/L (98-107); CK-MB VALUE MASS < 1.0 NG/ML (<3.6); CPK CREATINE PHOSPHOKINASE 117 U/L (46-171); CREATININE FOR GFR 0.93 MG/DL (0.70-1.30); GLOMERULAR FILTRATION RATE > 60.0 (>60); GLUCOSE, FASTING 90 MG/DL (60-100); MB/CK RELATIVE INDEX 0.85 (< OR =4); POTASSIUM SERUM 3.6 MMOL/L (3.5-5.1); SODIUM LEVEL 137 MMOL/L (136-145); TOTAL PROTEIN 8.2 G/DL (5.7-8.2)
[2024-01-24 22:38] LABS: INR 1.17; PROTHROMBIN TIME 14.6 SECONDS (12.5-14.5)
[2024-01-25 06:20] VITALS: BP 164/90; TEMP 99.2; O2SAT 97
[2024-01-25] MEDS: KETOROLAC 60MG 2ML VIAL IM ONE (06:22)
== END 2024-01-25 06:53 | disposition home or self-care (01) ==
LOC: M ED 21:13
DX: R07.89 Other chest pain (principal); F41.9 Anxiety disorder, unspecified; F32.9 Major depressive disorder, single episode, unspecified; F84.0 Autistic disorder; J30.89 Other allergic rhinitis; Z91.030 Bee allergy status
CPT/HCPCS: 71045; 74018; 76705; 80048; 80076; 82550; 82553; 83690; 84484; 85025; 85610; 93005; 96372; 99284; J1885

== ENCOUNTER → 2024-02-11 | Outpatient (REF) | payer MEDICAID ==
[2024-02-11 18:30] LABS: APPEARANCE, URINE HAZY (CLEAR); BACTERIA, URINE AUTO NEGATIVE (NEGATIVE); BILIRUBIN, URINE AUTO NEGATIVE (NEGATIVE); BLOOD, URINE BLOOD NEGATIVE (NEGATIVE); COLOR, URINE YELLOW (YELLOW); GLUCOSE, URINE (UA) AUTO NEGATIVE (NEGATIVE); KETONE, URINE AUTO NEGATIVE (NEGATIVE); LEUKOCYTE ESTERASE, URINE AUTO NEGATIVE (NEGATIVE); MUCUS, URINE SMALL (NEGATIVE); NITRITE, URINE AUTO NEGATIVE (NEGATIVE); PROTEIN, URINE AUTO NEGATIVE (NEGATIVE); RBC, URINE AUTO 0 /HPF (0-3); SPECIFIC GRAVITY URINE AUTO 1.023 (1.002-1.035); SQUAMOUS EPITHELIAL CELL UR AU 2 /HPF (0-6); WBC, URINE AUTO 1 /HPF (0-3)
== END ==
LOC: M LAB REF 17:51
PROVIDERS: ATTEND Nurse Practitioner Family
DX: R32 Unspecified urinary incontinence (principal)

== ENCOUNTER → 2024-03-26 | Outpatient (CLI) | payer MEDICAID ==
[~2024-03-26] MED LIST changes: +METHACHOLINE KIT (6 VIAL.NEB PREMIX) INH ONE
== END ==
LOC: M CARPUL 07:22
PROVIDERS: ATTEND Physician Assistant
DX: R06.00 Dyspnea, unspecified (principal)
CPT/HCPCS: 94070; 95070; J7674

== ENCOUNTER → 2024-05-08 | Outpatient (REF) | payer MEDICAID ==
[~2024-05-08] MED LIST changes: -METHACHOLINE KIT (6 VIAL.NEB PREMIX) INH ONE
[2024-05-08 13:14] LABS: ALBUMIN 4.5 G/DL (3.2-5.2); BILIRUBIN,DIRECT 0.2 MG/DL (<0.4); BILIRUBIN,TOTAL 0.8 MG/DL (0.3-1.2); TOTAL PROTEIN 7.8 G/DL (5.7-8.2)
== END ==
LOC: M LAB REF 12:03
PROVIDERS: ATTEND Nurse Practitioner Family
DX: R17 Unspecified jaundice (principal)

== ENCOUNTER → 2024-08-26 | Outpatient (CLI) | payer MEDICAID | LOC: M EKG 16:03 | PROVIDERS: ATTEND Nurse Practitioner Family | DX: R07.9 Chest pain, unspecified (principal) ==

== ENCOUNTER 2024-09-17 14:33 | Emergency (ER) | payer MEDICAID ==
[~2024-09-17] VITALS: Ht 205.7 cm; Wt 76.7 kg
[2024-09-17 17:14] LABS: BASO % 0.1 % (0.0-1.0); EOS # 0.2 10^3/uL (0.0-0.5); EOS % 2.1 % (0.0-3.0); HEMATOCRIT 38.8 % (42.0-52.0); HEMOGLOBIN 13.1 g/dl (13.5-17.5); LYMPH # 1.7 10^3/uL (1.5-5.0); LYMPH % 22.1 % (24.0-44.0); MEAN CORPUSCULAR HGB CONC 33.8 g/dl (32.0-36.5); MONO # 0.9 10^3/uL (0.0-0.8); MONO % 11.8 % (2.0-8.0); NEUTROPHILS # 4.8 10^3/uL (1.5-8.5); NEUTROPHILS % 63.6 % (36.0-66.0); PLATELET COUNT, AUTOMATED 221 10^3/uL (150-450); RED BLOOD COUNT 4.51 10^6/uL (4.30-6.10); WHITE BLOOD COUNT 7.5 10^3/uL (4.0-10.0)
[2024-09-17 17:32] LABS: CK-MB VALUE MASS < 1.0 NG/ML (<3.6); LIPASE 47 U/L (12-53)
[2024-09-17 17:34] LABS: ALBUMIN 3.9 G/DL (3.2-5.2); ALKALINE PHOSPHATASE 90 U/L (40-129); ALT/SGPT 17 U/L (7.0-40); AST/SGOT 18 U/L (<34); BILIRUBIN,DIRECT 0.3 MG/DL (<0.4); BILIRUBIN,TOTAL 0.9 MG/DL (0.3-1.2); BLOOD UREA NITROGEN 21 MG/DL (9-23); CALCIUM LEVEL 8.9 MG/DL (8.5-10.1); CARBON DIOXIDE LEVEL 28 MMOL/L (20-31); CHLORIDE LEVEL 108 MMOL/L (98-107); CREATININE FOR GFR 0.85 MG/DL (0.70-1.30); GLOMERULAR FILTRATION RATE > 90.0 (>60); GLUCOSE, FASTING 103 MG/DL (60-100); SODIUM LEVEL 143 MMOL/L (136-145); TOTAL PROTEIN 7.2 G/DL (5.7-8.2)
[2024-09-17 17:35] LABS: CPK CREATINE PHOSPHOKINASE 324 U/L (46-171); THYROID STIMULATING HORMONE 0.648 uIU/ML (0.55-4.78)
[2024-09-17 17:36] LABS: FREE T4 1.15 NG/DL (0.89-1.76)
[2024-09-17] MEDS ORDERED: MIRA3350 PO (18:03)
[2024-09-17 18:11] VITALS: BP 109/63; TEMP 97.9; O2SAT 99
[2024-09-17] MEDS: MAGNESIUM CITRATE 300ML BTL PO ONE (18:16)
== END 2024-09-17 18:20 | disposition home or self-care (01) ==
LOC: M ED 14:33
DX: K59.00 Constipation, unspecified (principal); F84.0 Autistic disorder; K58.9 Irritable bowel syndrome, unspecified; K21.9 Gastro-esophageal reflux disease without esophagitis; M41.9 Scoliosis, unspecified; J30.89 Other allergic rhinitis; Z91.030 Bee allergy status

== ENCOUNTER 2024-12-20 14:20 | Emergency (ER) | payer MEDICAID ==
[~2024-12-20] VITALS: Ht 205.7 cm; Wt 82.7 kg
[~2024-12-20 14:20] MED LIST changes: +LIDO1ADH93 TOP; -LIDO5DIS41 TOP
[2024-12-20] MEDS ORDERED: COLC0.6T47 (14:34)
[2024-12-20] MEDS ORDERED: ALBU8.5H (14:34)
[2024-12-20] MEDS ORDERED: ARNU1INH (14:34)
[2024-12-20] MEDS ORDERED: OLAN2.5T53 (14:34)
[2024-12-20 18:19] LABS: BASO # 0.0 10^3/uL (0.0-0.2); BASO % 0.3 % (0.0-1.0); EOS # 0.2 10^3/uL (0.0-0.5); EOS % 2.3 % (0.0-3.0); LYMPH # 2.1 10^3/uL (1.5-5.0); LYMPH % 26.7 % (24.0-44.0); MONO # 0.7 10^3/uL (0.0-0.8); MONO % 8.1 % (2.0-8.0); NEUTROPHILS # 5.0 10^3/uL (1.5-8.5); NEUTROPHILS % 62.3 % (36.0-66.0); PLATELET COUNT, AUTOMATED 241 10^3/uL (150-450)
[2024-12-20 18:26] LABS: ERYTHROCYTE SEDIMENTATION RATE 8 mm/hr (0-15)
[2024-12-20 18:50] LABS: C REACTIVE PROTEIN QUANTITATIV < 0.50 MG/DL (<1.0)
[2024-12-20 18:51] LABS: ALT/SGPT 29 U/L (7.0-40); AST/SGOT 25 U/L (<34); CALCIUM LEVEL 9.2 MG/DL (8.5-10.1); CARBON DIOXIDE LEVEL 31 MMOL/L (20-31); CHLORIDE LEVEL 105 MMOL/L (98-107); CREATININE FOR GFR 0.98 MG/DL (0.70-1.30); GLOMERULAR FILTRATION RATE > 90.0 (>60); POTASSIUM SERUM 4.4 MMOL/L (3.5-5.1); SODIUM LEVEL 143 MMOL/L (136-145)
[2024-12-20] MEDS: KETOROLAC 30 MG/ML 1 ML VIAL IM ONE (19:26)
[2024-12-20] MEDS: predniSONE 20 MG TAB PO ONE (19:27)
[2024-12-20] MEDS: ACETAMINOPHEN 500 MG TAB PO ONE (19:27)
[2024-12-20] MEDS ORDERED: PRED20TA PO (20:32)
[2024-12-20 20:58] VITALS: BP 116/75; TEMP 97; O2SAT 97
== END 2024-12-20 21:01 | disposition home or self-care (01) ==
LOC: M ED 14:20
DX: M25.512 Pain in left shoulder (principal); M25.522 Pain in left elbow; K58.9 Irritable bowel syndrome, unspecified
CPT/HCPCS: 73030; 73080; 80048; 80076; 84550; 85025; 85652; 86140; 96372; 99283; J1885; J7512

== ENCOUNTER → 2025-02-16 | Outpatient (CLI) | payer MEDICAID ==
[~2025-02-16] MED LIST changes: +ALBU8.5H; +ARNU1INH; -COLC0.6T47 PO; +COLC0.6T53; +COLC0.6T53 PO; -IBUP-1022 PO; +IBUP600T42 PO; +OLAN2.5T53; +PRED20TA PO
[2025-02-16 15:27] LABS: BASO # 0.0 10^3/uL (0.0-0.2); BASO % 0.1 % (0.0-1.0); EOS # 0.2 10^3/uL (0.0-0.5); EOS % 2.1 % (0.0-3.0); LYMPH # 2.1 10^3/uL (1.5-5.0); LYMPH % 28.0 % (24.0-44.0); MONO # 0.7 10^3/uL (0.0-0.8); MONO % 9.1 % (2.0-8.0); NEUTROPHILS # 4.6 10^3/uL (1.5-8.5); NEUTROPHILS % 60.3 % (36.0-66.0); PLATELET COUNT, AUTOMATED 279 10^3/uL (150-450)
== END ==
LOC: M LAB 14:57
PROVIDERS: ATTEND Physician Assistant
DX: R06.00 Dyspnea, unspecified (principal)

== ENCOUNTER → 2025-03-23 | Outpatient (CLI) | payer MEDICAID | LOC: M RAD 14:28 | PROVIDERS: ATTEND Nurse Practitioner Family | DX: K59.04 Chronic idiopathic constipation (principal) ==

== ENCOUNTER 2025-05-03 12:18 | Emergency (ER) | payer MEDICAID ==
[~2025-05-03] VITALS: Ht 205.7 cm; Wt 86.3 kg
[2025-05-03 12:35] VITALS: BP 123/75; TEMP 97.9; O2SAT 98
== END 2025-05-03 16:58 | disposition left against medical advice (07) ==
LOC: M ED 12:18
DX: Z53.21 Procedure and treatment not carried out due to patient leaving prior to being seen by health care provider (principal)